=== PATIENT | male | born 1980 | race African-American/Black ===

== ENCOUNTER 2018-12-17 21:01 | Emergency (ER) | payer MEDICARE, MEDICAID ==
[~2018-12-17] VITALS: Ht 182.9 cm; Wt 72.6 kg
[~2018-12-17 21:01] MED LIST: NORCO 5-325 TA1 EACH ORAL
[2018-12-17 21:13] VITALS: BP 155/97
--- NOTE | 2018-12-17 21:13 | NUR ---
ED Nurse Note: Pt arrived ED from home, c/o right chronic pain. 07/02.Pt is A/O X4. Vital signs stable at this time, waitng for orders.
[2018-12-17] MEDS ORDERED: MEDROL DOSEPAK4 MG ORAL (21:48)
[2018-12-17] MEDS ORDERED: NEURONTIN600 MG ORAL (21:48)
--- NOTE | 2018-12-17 21:48 | NUR ---
ED Nurse Note: Meds given as ordered.
[2018-12-17 21:58] VITALS: BP 151/97
--- NOTE | 2018-12-17 21:58 | NUR ---
ED Nurse Note: Pt has seen by Dr. Cartwright, all orders carried out. Pt is ready for discharged. Discharge instruction and prescription given to pt and verbalized understanding. ID band removed.Pt discharge from ED with steady gait and all his belongings.
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
== END 2018-12-17 21:58 | disposition home or self-care (01) ==
LOC: EMR 21:27
DX: G57.91 Unspecified mononeuropathy of right lower limb (principal)
CPT/HCPCS: 99282

== ENCOUNTER 2018-12-21 19:44 | Emergency (ER) | payer MEDICARE, MEDICAID ==
[~2018-12-21] VITALS: Ht 185.4 cm; Wt 74.8 kg
[~2018-12-21 19:44] MED LIST changes: +MEDROL DOSEPAK4 MG ORAL; +NEURONTIN600 MG ORAL
[2018-12-21 19:54] VITALS: BP 144/99
--- NOTE | 2018-12-21 19:57 | NUR ---
ED Nurse Note: pt c/o sore throat/cough x 3days and right flank pain, denies problem with urination.
[2018-12-21] MEDS ORDERED: Benzonatate 100mg Perles ORAL ONE (20:15)
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
[2018-12-21] MEDS ORDERED: Oseltamivir 75mg cap ORAL ONE (20:45)
[2018-12-21] MEDS ORDERED: TESSALON PERLE100 MG ORAL (20:52)
[2018-12-21] MEDS ORDERED: SUDAFED PE PRE1 EAC3 PO (20:52)
[2018-12-21] MEDS ORDERED: TAMIFLU75 MG ORAL (20:52)
[2018-12-21 21:13] VITALS: BP 130/80
[2018-12-21 21:17] VITALS: BP 130/80
--- NOTE | 2018-12-21 21:17 | NUR ---
ED Nurse Note: Pt is DC per ERMD orders. pt is alert and oriented times 4 and understands all DC notes and instructions. pt is instructed to follow up with main provider as soon as possible. pt is instructed to return to ER is any variance in condition. pt left with all belongings as well as DC notes and instructions. pt vital signs, condition and status is reported to ERMD prior to DC. pt is stable for DC. pt vital signs is stable. pt is able to ambulate. pt ID band removed.
--- NOTE | 2018-12-22 13:31 | Diagnostic Imaging Report ---
Indication: Cough Comparison: None A single view chest radiograph was obtained. Findings: Cardiomediastinal appearance is within normal limits for age. The lungs are clear. Pulmonary vascularity is appropriate. The diaphragmatic contour is smooth and costophrenic angles are sharp. No pleural effusions are identified. The bones are unremarkable. Impression: No acute findings
== END 2018-12-21 21:18 | disposition home or self-care (01) ==
LOC: EMR 20:25
DX: J11.1 Influenza due to unidentified influenza virus with other respiratory manifestations (principal)
CPT/HCPCS: 71045; 86710; 99283

== ENCOUNTER 2018-12-28 19:57 | Emergency (ER) | payer MEDICARE, MEDICAID ==
[~2018-12-28] VITALS: Ht 185.4 cm; Wt 74.8 kg
[~2018-12-28 19:57] MED LIST changes: +SUDAFED PE PRE1 EAC3 PO; +TAMIFLU75 MG ORAL; +TESSALON PERLE100 MG ORAL
[2018-12-28] MEDS ORDERED: NKM (20:07)
[2018-12-28 20:15] VITALS: BP 104/49
--- NOTE | 2018-12-28 20:15 | NUR ---
ED Nurse Note: Patient walk in c/o cough and body aches. Patient was seen at [facility] 5 days ago for same symptoms. pt stated he is still on tamiflu and and otc tylenol. will continue to monitor.
[2018-12-28] MEDS ORDERED: Albuterol/Ipratropium 3ml neb HHN ONE (21:00)
--- NOTE | 2018-12-28 21:07 | NUR ---
ED Nurse Note: rt on bedside doing the nebulization. will continue to monitor.
[2018-12-28] MEDS ORDERED: PREDNISONE20 MG ORAL ×2 (21:27→21:41)
[2018-12-28] MEDS ORDERED: ALBUTEROL SULF8.5 GM INH ×2 (21:29→21:41)
[2018-12-28 21:44] VITALS: BP 104/49
--- NOTE | 2018-12-28 21:44 | NUR ---
ED Nurse Note: pt cleared to d/c per ER provider, pt d/c instruction and prescription provided per ER Provider, pt education done via discussion and hand out, pt advised to follow up with pcp to continue care, pt verbalized understanding and agrees with plan, wristband removed. pt vss, ambulatory w/ steady gait. all belongings left w/ pt.
--- NOTE | 2018-12-29 12:35 | Diagnostic Imaging Report ---
Indication: Dyspnea Comparison: 12/21/2018 A single view chest radiograph was obtained. Findings: Cardiomediastinal appearance is within normal limits for age. The lungs are clear. Pulmonary vascularity is appropriate. The diaphragmatic contour is smooth and costophrenic angles are sharp. No pleural effusions are identified. The bones are unremarkable. Impression: No acute findings
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
== END 2018-12-28 22:44 | disposition home or self-care (01) ==
LOC: EMR 20:23
DX: J40 Bronchitis, not specified as acute or chronic (principal)
CPT/HCPCS: 71045; 94640; 94664; 99284; J7620